=== PATIENT | female | born 1970 | race African-American/Black ===

== ENCOUNTER → 2017-12-09 | Day surgery (SDC) | payer MEDICAID ==
[~2017-12-09] MED LIST: ACETAMINOPHEN 325MG TABLET PO PRN; ALBU6.7H IH; AMLO10TA80 PO; BECL10.62 IH; CLAR10 PO; CYCL5TAB PO; DICL50TA9 PO; FENTANYL CITRATE/PF 50MCG/ML 2ML VIAL ONE; GABA-529 PO; HEPARIN SODIUM 1,000 UNIT/1ML VIAL IV ONE; HYDR-2510 PO; HYDR200T80 PO; IODIXANOL 320MG/ML 100 ML BOTTLE IV ONE; LIDOCAINE HCL/PF 1% 10 MG/ML 5ML VIAL ONE; LOSA100T14 PO; MIDAZOLAM HCL 2 MG/2 ML VIAL ONE; NICARDIPINE 100MCG/ML 10ML VIAL (CATH LAB) IV ONE; NITROGLYCERIN 50MCG/ML 10ML VIAL (CATH LAB) IV ONE; ONDANSETRON HCL 4MG/2ML VIAL IV PRN
[2017-12-09 11:18] LABS: BASOPHILS % 0.4 % (0.0-2.0); EOSINOPHILS % 0.7 % (0.0-5.0); HEMATOCRIT. 35.1 % (36.0-48.0); LYMPHOCYTES % 25.1 % (20.0-50.0); MEAN CORPUSCULAR HEMOGLOBIN 29.3 pg (28.0-32.0); MEAN CORPUSCULAR VOLUME 85.6 fL (81.0-99.0); MONOCYTES % 5.4 % (2.0-8.0); NEUTROPHILS % 68.4 % (40.0-76.0); PLATELET 292 x1000/uL (130-400); RED BLOOD CELL COUNT 4.09 mill/uL (4.2-5.4); RED CELL DISTRIBUTION WIDTH 13.3 % (11.6-14.6)
[2017-12-09 11:24] LABS: CHLORIDE 105 mEq/L (98-107)
[2017-12-09 11:25] LABS: PROTHROMBIN TIME 10.7 sec (9.4-11.6)
== END ==
LOC: CCL 09:52
PROVIDERS: ATTEND Internal Medicine Cardiovascular Disease
DX: I42.8 Other cardiomyopathies (principal); E66.9 Obesity, unspecified; Z79.899 Other long term (current) drug therapy; Z90.710 Acquired absence of both cervix and uterus; Z90.49 Acquired absence of other specified parts of digestive tract; Z88.2 Allergy status to sulfonamides; I10 Essential (primary) hypertension; Z98.890 Other specified postprocedural states; J45.909 Unspecified asthma, uncomplicated; M19.90 Unspecified osteoarthritis, unspecified site; N39.0 Urinary tract infection, site not specified
CPT/HCPCS: 36415; 80048; 85025; 85610; 93458; C1769; C1887; C1893; J1644; J2250; J3010; J3490; Q9967

== ENCOUNTER 2018-01-06 18:53 | Emergency (ER) | payer MEDICAID ==
[~2018-01-06] VITALS: Ht 172.7 cm; Wt 93.0 kg
[~2018-01-06 18:53] MED LIST changes: -ACETAMINOPHEN 325MG TABLET PO PRN; -FENTANYL CITRATE/PF 50MCG/ML 2ML VIAL ONE; -HEPARIN SODIUM 1,000 UNIT/1ML VIAL IV ONE; -IODIXANOL 320MG/ML 100 ML BOTTLE IV ONE; -LIDOCAINE HCL/PF 1% 10 MG/ML 5ML VIAL ONE; -MIDAZOLAM HCL 2 MG/2 ML VIAL ONE; -NICARDIPINE 100MCG/ML 10ML VIAL (CATH LAB) IV ONE; -NITROGLYCERIN 50MCG/ML 10ML VIAL (CATH LAB) IV ONE; -ONDANSETRON HCL 4MG/2ML VIAL IV PRN
[2018-01-07] MEDS ORDERED: ACETAMINOPHEN WITH CODEINE 300/30MG TABLET PO ONE (01:30)
[2018-01-07] MEDS ORDERED: IBUPROFEN 600MG TABLET PO ONE (02:45)
[2018-01-07 03:44] VITALS: BP 121/68
== END 2018-01-07 04:21 | disposition home or self-care (01) ==
LOC: ER 20:28
DX: M25.561 Pain in right knee (principal); G89.29 Other chronic pain; F45.42 Pain disorder with related psychological factors; M79.7 Fibromyalgia; I10 Essential (primary) hypertension; M32.9 Systemic lupus erythematosus, unspecified; F12.10 Cannabis abuse, uncomplicated; Z88.2 Allergy status to sulfonamides
CPT/HCPCS: 81025; 99283

== ENCOUNTER 2018-12-26 13:07 | Emergency (ER) | payer MEDICAID ==
[~2018-12-26] VITALS: Ht 152.4 cm; Wt 91.0 kg
[~2018-12-26 13:07] MED LIST changes: +AMIT25TA9 PO; +CROM10DR2 EACHEYE; +ESTR1TAB98 PO
[2018-12-26 15:19] LABS: BASOPHILS % 0.6 % (0.0-2.0); EOSINOPHILS % 0.8 % (0.0-5.0); HEMOGLOBIN. 12.6 g/dL (12.0-16.0); LYMPHOCYTES % 26.3 % (20.0-50.0); MEAN CORPUSCULAR HEMOGLOBIN 28.4 pg (28.0-32.0); MEAN CORPUSCULAR VOLUME 85.9 fL (81.0-99.0); MEAN PLATELET VOLUME 8.1 fl (7.4-10.4); MONOCYTES % 5.3 % (2.0-8.0); PLATELET 298 x1000/uL (130-400); RED BLOOD CELL COUNT 4.42 mill/uL (4.2-5.4)
[2018-12-26 15:23] LABS: CHLORIDE 106 mEq/L (98-107)
[2018-12-26 15:25] LABS: PARTIAL THROMBOPLASTIN TIME 24.8 sec (23.4-31.0); PROTHROMBIN TIME 9.8 sec (9.6-11.0)
[2018-12-26] MEDS ORDERED: NITROGLYCERIN OINT 1GM/INCH UDPKT TD ONE (15:45)
[2018-12-26] MEDS ORDERED: ONDANSETRON HCL 4MG/2ML INJ IV STA (15:45)
[2018-12-26] MEDS ORDERED: MORPHINE SULFATE 4 MG/ML CPJ (NOT FOR IM USE) IV STA (15:45)
[2018-12-26] MEDS ORDERED: ASPIRIN 81MG TABLET PO ONE (15:45)
[2018-12-26 19:55] VITALS: BP 118/88
== END 2018-12-26 19:59 | disposition home or self-care (01) ==
LOC: ER 13:07
DX: R07.89 Other chest pain (principal); M79.7 Fibromyalgia; I10 Essential (primary) hypertension; J44.9 Chronic obstructive pulmonary disease, unspecified; K76.9 Liver disease, unspecified; F12.10 Cannabis abuse, uncomplicated; Z90.49 Acquired absence of other specified parts of digestive tract; Z98.890 Other specified postprocedural states; Z90.710 Acquired absence of both cervix and uterus; Z79.899 Other long term (current) drug therapy; Z88.2 Allergy status to sulfonamides
CPT/HCPCS: 36415; 71045; 80053; 83880; 84484; 85025; 85379; 85610; 85730; 93005; 93970; 96374; 96375; 99284; J2270; J2405

== ENCOUNTER 2019-08-12 12:31 | Emergency (ER) | payer MEDICAID ==
[~2019-08-12] VITALS: Ht 170.2 cm; Wt 86.0 kg
[~2019-08-12 12:31] MED LIST changes: -ALBU6.7H IH; +ALBU6.7H11 IH; -LOSA100T14 PO; +LOSA100T32 PO
[2019-08-12] MEDS ORDERED: IBUPROFEN 800MG TABLET PO ONE (15:00)
[2019-08-12 18:09] VITALS: BP 128/62
== END 2019-08-12 18:12 | disposition home or self-care (01) ==
LOC: ER 12:31
DX: M79.645 Pain in left finger(s) (principal); J44.9 Chronic obstructive pulmonary disease, unspecified; I10 Essential (primary) hypertension; Z88.2 Allergy status to sulfonamides; Z98.890 Other specified postprocedural states
CPT/HCPCS: 73140; 99283

== ENCOUNTER 2019-12-04 17:33 | Emergency (ER) | payer MEDICAID ==
[~2019-12-04] VITALS: Ht 170.2 cm; Wt 88.5 kg
[2019-12-04] MEDS ORDERED: ACETAMINOPHEN WITH CODEINE 300/30MG TABLET PO ONE (18:45)
[2019-12-04 20:06] VITALS: BP 141/91
== END 2019-12-04 20:08 | disposition home or self-care (01) ==
LOC: ER 17:33
DX: S20.211A Contusion of right front wall of thorax, initial encounter (principal); E11.9 Type 2 diabetes mellitus without complications; F32.9 Major depressive disorder, single episode, unspecified; I10 Essential (primary) hypertension; Z90.49 Acquired absence of other specified parts of digestive tract; Z98.1 Arthrodesis status; Z90.710 Acquired absence of both cervix and uterus; Z88.2 Allergy status to sulfonamides; W01.198A Fall on same level from slipping, tripping and stumbling with subsequent striking against other object, initial encounter; Y93.89 Activity, other specified; Y92.810 Car as the place of occurrence of the external cause
CPT/HCPCS: 71045; 99283

== ENCOUNTER 2021-05-29 14:14 | Emergency (ER) | payer MEDICAID ==
[~2021-05-29] VITALS: Ht 170.2 cm; Wt 91.0 kg
[~2021-05-29 14:14] MED LIST changes: -ALBU6.7H11 IH; +ALBU6.7H15 IH; -HYDR-2510 PO; +HYDR50TA PO
[2021-05-29 14:22] VITALS: BP 122/68
== END 2021-05-29 17:57 | disposition home or self-care (01) ==
LOC: ER 14:14
DX: S71.132A Puncture wound without foreign body, left thigh, initial encounter (principal); E11.9 Type 2 diabetes mellitus without complications; I10 Essential (primary) hypertension; Z88.2 Allergy status to sulfonamides; Z79.899 Other long term (current) drug therapy; Z98.890 Other specified postprocedural states; Z90.49 Acquired absence of other specified parts of digestive tract; X58.XXXA Exposure to other specified factors, initial encounter; Y93.89 Activity, other specified; Y92.89 Other specified places as the place of occurrence of the external cause; Y99.8 Other external cause status
CPT/HCPCS: 73552; 99283

== ENCOUNTER 2022-02-26 15:45 | Emergency (ER) | payer MEDICAID ==
[~2022-02-26] VITALS: Ht 170.2 cm; Wt 91.0 kg
[2022-02-26 15:59] VITALS: BP 124/76
[2022-02-26] MEDS ORDERED: KETOROLAC 15MG/ML VIAL IM ONE (17:15)
[2022-02-26] MEDS ORDERED: NAPR-681 MT (19:06)
[2022-02-26] MEDS ORDERED: CYCL10TA21 MT (19:11)
== END 2022-02-26 19:19 | disposition home or self-care (01) ==
LOC: ER 15:45
DX: R07.81 Pleurodynia (principal); I10 Essential (primary) hypertension; E11.9 Type 2 diabetes mellitus without complications; Z88.2 Allergy status to sulfonamides; Z79.899 Other long term (current) drug therapy
CPT/HCPCS: 71100; 96372; 99283; J1885